=== PATIENT | male | born 1985 | race Caucasian/White ===

== ENCOUNTER 2016-04-20 23:16 | Emergency (ER) | payer MEDICAID ==
[2010-12-01 07:11] VITALS: BMI 31.8
== END 2016-04-21 00:33 | disposition home or self-care (01) ==
LOC: D.ER 23:16
DX: M54.6 Pain in thoracic spine (principal); M25.512 Pain in left shoulder; F17.200 Nicotine dependence, unspecified, uncomplicated

== ENCOUNTER 2017-04-20 19:20 | Emergency (ER) | payer MEDICARE, MEDICAID ==
[2010-12-01 07:11] VITALS: BMI 31.8
[2017-04-20 21:20] LABS: BASOPHILS 0.1 % (0-2); EOSINOPHILS 1.5 % (0-7); HEMATOCRIT 43.9 % (42.0-54.0); HEMOGLOBIN 15.1 g/dL (13.5-17.5); IMMATURE GRANULOCYTES 0.2 % (0-5); LYMPHOCYTES 19.5 % (15-50); MCH 30.8 pg (26.0-34.0); MCHC 34.4 g/dL (31.0-37.0); MCV 89.4 fL (80.0-100.0); MEAN PLATELET VOLUME 10.9 fL (7.4-10.4); NEUTROPHILS 70.7 % (40-80); PLATELET COUNT 281 10x3/uL (130-400); RBC 4.91 10x6/uL (4.20-6.10); RDW 12.6 % (11.5-14.5); WBC 10.5 10x3/uL (4.8-10.8)
[2017-04-20 21:27] LABS: ALBUMIN 4.7 g/dL (3.4-5.0); ALKALINE PHOSPHATASE 87 U/L (46-116); ALT (SGPT) 63 U/L (10-68); BILIRUBIN - TOTAL 0.17 mg/dL (0.2-1.3); CALC OSMOLALITY 279 mosm/kg (275-300); CALCIUM 10.3 mg/dL (8.5-10.1); CARBON DIOXIDE 27.4 mmol/L (21.0-32.0); CHLORIDE - SERUM 103 mmol/L (98-107); CREATININE - SERUM 0.8 mg/dL (0.6-1.3); GLUCOSE 90 mg/dL (74-106); POTASSIUM - SERUM 3.9 mmol/L (3.5-5.1); PROTEIN - SERUM 7.8 g/dL (6.4-8.2); SODIUM 140 mmol/L (136-145); UREA NITROGEN 14 mg/dL (7-18); eGFR NON AFRICAN AMERICAN > 90 mL/min (90-120)
[2017-04-20 21:54] LABS: UDS - AMPHET NEGATIVE QUAL (NEGATIVE); UDS - BARB NEGATIVE QUAL (NEGATIVE); UDS - BENZO NEGATIVE QUAL (NEGATIVE); UDS - COCAINE NEGATIVE QUAL (NEGATIVE); UDS - OPIATE NEGATIVE QUAL (NEGATIVE); UDS - PCP NEGATIVE QUAL (NEGATIVE); UDS - THC NEGATIVE QUAL (NEGATIVE)
[2017-04-20 21:57] LABS: APPEARANCE CLEAR (CLEAR); BILIRUBIN NEGATIVE (NEGATIVE); COLOR YELLOW (YELLOW); GLUCOSE NEGATIVE (NEGATIVE); KETONE NEGATIVE (NEGATIVE); NITRITE NEGATIVE (NEGATIVE); PROTEIN NEGATIVE (NEGATIVE); UROBILINOGEN NORMAL (NORMAL)
== END 2017-04-21 01:00 | disposition home or self-care (01) ==
LOC: D.ER 19:20
PROVIDERS: Physician Assistant Medical
DX: M94.0 Chondrocostal junction syndrome [Tietze] (principal); F17.200 Nicotine dependence, unspecified, uncomplicated

== ENCOUNTER 2017-05-25 22:19 | Emergency (ER) | payer MEDICARE, MEDICAID ==
[2010-12-01 07:11] VITALS: BMI 31.8
== END 2017-05-26 01:05 | disposition home or self-care (01) ==
LOC: D.ER 22:19
DX: S43.401A Unspecified sprain of right shoulder joint, initial encounter (principal); X58.XXXA Exposure to other specified factors, initial encounter; Y93.89 Activity, other specified; Y92.89 Other specified places as the place of occurrence of the external cause; F17.200 Nicotine dependence, unspecified, uncomplicated

== ENCOUNTER 2017-06-11 22:51 | Emergency (ER) | payer BC ==
[2010-12-01 07:11] VITALS: BMI 31.8
== END 2017-06-12 01:55 | disposition home or self-care (01) ==
LOC: D.ER 22:51
DX: S43.402A Unspecified sprain of left shoulder joint, initial encounter (principal); X50.0XXA Overexertion from strenuous movement or load, initial encounter; Y93.89 Activity, other specified; Y92.89 Other specified places as the place of occurrence of the external cause; M25.512 Pain in left shoulder; F17.200 Nicotine dependence, unspecified, uncomplicated

== ENCOUNTER 2017-07-13 17:24 | Emergency (ER) | payer MEDICAID ==
[2010-12-01 07:11] VITALS: BMI 31.8
== END 2017-07-13 20:20 | disposition home or self-care (01) ==
LOC: D.ER 17:24
DX: M75.92 Shoulder lesion, unspecified, left shoulder (principal); M75.91 Shoulder lesion, unspecified, right shoulder; M25.512 Pain in left shoulder; M25.511 Pain in right shoulder; F17.200 Nicotine dependence, unspecified, uncomplicated

== ENCOUNTER 2017-07-27 02:58 | Emergency (ER) | payer MEDICAID ==
[2010-12-01 07:11] VITALS: BMI 31.8
[2017-07-27 03:34] LABS: BASOPHILS 0.2 % (0-2); EOSINOPHILS 3.6 % (0-7); HEMATOCRIT 40.9 % (42.0-54.0); HEMOGLOBIN 14.4 g/dL (13.5-17.5); IMMATURE GRANULOCYTES 0.2 % (0-5); LYMPHOCYTES 34.8 % (15-50); MCH 30.8 pg (26.0-34.0); MCHC 35.2 g/dL (31.0-37.0); MCV 87.4 fL (80.0-100.0); MEAN PLATELET VOLUME 10.1 fL (7.4-10.4); NEUTROPHILS 50.2 % (40-80); RBC 4.68 10x6/uL (4.20-6.10); RDW 12.6 % (11.5-14.5); WBC 8.3 10x3/uL (4.8-10.8)
[2017-07-27 03:36] LABS: PLATELET COUNT 218 10x3/uL (130-400)
[2017-07-27 03:57] LABS: ALKALINE PHOSPHATASE 57 U/L (46-116); ALT (SGPT) 43 U/L (10-68); BILIRUBIN - TOTAL 0.21 mg/dL (0.2-1.3); CALC OSMOLALITY 281 mosm/kg (275-300); CALCIUM 9.1 mg/dL (8.5-10.1); CARBON DIOXIDE 23.7 mmol/L (21.0-32.0); CHLORIDE - SERUM 105 mmol/L (98-107); CREATININE - SERUM 0.8 mg/dL (0.6-1.3); GLUCOSE 88 mg/dL (74-106); POTASSIUM - SERUM 3.9 mmol/L (3.5-5.1); PROTEIN - SERUM 7.5 g/dL (6.4-8.2); SODIUM 140 mmol/L (136-145); UREA NITROGEN 24 mg/dL (7-18); eGFR NON AFRICAN AMERICAN > 90 mL/min (90-120)
[2017-07-27 04:01] LABS: CREATINE KINASE 150 UL (21-232); MAGNESIUM - SERUM 1.9 mg/dL (1.8-2.4)
[2017-07-27 04:02] LABS: TROPONIN-I < 0.017 ng/mL (0.000-0.060)
== END 2017-07-27 04:26 | disposition home or self-care (01) ==
LOC: D.ER 02:58
PROVIDERS: Emergency Medicine
DX: R00.2 Palpitations (principal); F17.200 Nicotine dependence, unspecified, uncomplicated

== ENCOUNTER 2017-08-18 11:33 | Emergency (ER) | payer MEDICAID ==
[~2017-08-18] VITALS: Ht 193 cm; Wt 116.4 kg
[2017-08-18 11:39] VITALS: Ht 193 cm; Wt 116.4 kg
[2017-08-18] MEDS ORDERED: SKELAXIN800 MG PO (11:42)
[2017-08-18] MEDS ORDERED: NEURONTIN800 MG PO (11:42)
[2017-08-18] MEDS ORDERED: TENORMIN25 MG (11:42)
[2017-08-18] MEDS ORDERED: CYMBALTA60 MG PO (11:43)
[2017-08-18] MEDS ORDERED: IBUPROFEN200 MG PO (11:43)
[2017-08-18] MEDS ORDERED: HYDROCODON-ACE1 EAC7 PO (13:53)
[2017-08-18] MEDS ORDERED: CYCLOBENZAPRINE10 MG PO (13:53)
[2017-08-18 13:58] VITALS: BP 132/069
== END 2017-08-18 13:58 | disposition home or self-care (01) ==
LOC: D.ER 11:33
DX: M54.5 Low back pain (principal); M25.552 Pain in left hip; Q79.6 Ehlers-Danlos syndromes; F17.200 Nicotine dependence, unspecified, uncomplicated

== ENCOUNTER 2017-11-14 21:13 | Emergency (ER) | payer MEDICAID ==
[~2017-11-14] VITALS: Ht 193 cm; Wt 115.7 kg
[~2017-11-14 21:13] MED LIST: CYCLOBENZAPRINE10 MG PO; CYMBALTA60 MG PO; HYDROCODON-ACE1 EAC7 PO; IBUPROFEN200 MG PO; NEURONTIN800 MG PO; SKELAXIN800 MG PO; TENORMIN25 MG
[2017-11-14 21:21] VITALS: Ht 193 cm; Wt 115.7 kg
[2017-11-14 22:19] LABS: BASOPHILS 0.1 % (0-2); EOSINOPHILS 1.6 % (0-7); HEMATOCRIT 41.3 % (42.0-54.0); HEMOGLOBIN 14.6 g/dL (13.5-17.5); IMMATURE GRANULOCYTES 0.3 % (0-5); LYMPHOCYTES 27.8 % (15-50); MCH 30.2 pg (26.0-34.0); MCHC 35.4 g/dL (31.0-37.0); MCV 85.3 fL (80.0-100.0); MEAN PLATELET VOLUME 10.7 fL (7.4-10.4); MONOCYTES 6.8 % (2-11); NEUTROPHILS 63.4 % (40-80); PLATELET COUNT 195 10x3/uL (130-400); RBC 4.84 10x6/uL (4.20-6.10); RDW 12.4 % (11.5-14.5)
[2017-11-14 22:24] LABS: APTT 31.5 SECONDS (22.8-39.4); INR 1.01 (0.85-1.17); PROTIME 12.9 SECONDS (11.6-15.0)
[2017-11-14 22:25] LABS: D-DIMER-QUANTITATIVE < 0.27 ug/mLFEU (0.20-0.54)
[2017-11-14 22:30] LABS: ALKALINE PHOSPHATASE 61 U/L (46-116); ALT (SGPT) 78 U/L (10-68); BILIRUBIN - TOTAL 0.26 mg/dL (0.2-1.3); CALC OSMOLALITY 281 mosm/kg (275-300); CALCIUM 8.9 mg/dL (8.5-10.1); CARBON DIOXIDE 24.3 mmol/L (21.0-32.0); CHLORIDE - SERUM 105 mmol/L (98-107); CREATININE - SERUM 0.9 mg/dL (0.6-1.3); GLUCOSE 96 mg/dL (74-106); POTASSIUM - SERUM 3.7 mmol/L (3.5-5.1); PROTEIN - SERUM 7.4 g/dL (6.4-8.2); SODIUM 141 mmol/L (136-145); UREA NITROGEN 14 mg/dL (7-18); eGFR NON AFRICAN AMERICAN > 90 mL/min (90-120)
[2017-11-14 22:41] LABS: CKMB 1.1 U/L (0.0-3.6); CREATINE KINASE 125 UL (21-232); PRO BNP 124 pg/mL (0-125)
[2017-11-14 22:46] LABS: TROPONIN-I < 0.017 ng/mL (0.000-0.060)
[2017-11-15] MEDS ORDERED: NAPROSYN500 MG PO (00:23)
[2017-11-15 00:35] VITALS: BP 120/72
== END 2017-11-15 00:35 | disposition home or self-care (01) ==
LOC: D.ER 21:13
PROVIDERS: Family Medicine
DX: R07.9 Chest pain, unspecified (principal); M94.0 Chondrocostal junction syndrome [Tietze]; R00.2 Palpitations; R55 Syncope and collapse; Q79.6 Ehlers-Danlos syndromes; F17.200 Nicotine dependence, unspecified, uncomplicated

== ENCOUNTER 2017-12-24 11:43 | Emergency (ER) | payer SELFPAY ==
[~2017-12-24] VITALS: Ht 193 cm; Wt 113.6 kg
[~2017-12-24 11:43] MED LIST changes: +NAPROSYN500 MG PO
[2017-12-24 12:00] VITALS: Ht 193 cm; Wt 113.6 kg
[2017-12-24 12:30] LABS: BASOPHILS 0.2 % (0-2); EOSINOPHILS 1.6 % (0-7); HEMATOCRIT 41.7 % (42.0-54.0); HEMOGLOBIN 14.5 g/dL (13.5-17.5); IMMATURE GRANULOCYTES 0.2 % (0-5); LYMPHOCYTES 22.2 % (15-50); MCH 30.3 pg (26.0-34.0); MCHC 34.8 g/dL (31.0-37.0); MCV 87.1 fL (80.0-100.0); MEAN PLATELET VOLUME 10.4 fL (7.4-10.4); MONOCYTES 7.6 % (2-11); NEUTROPHILS 68.2 % (40-80); PLATELET COUNT 213 10x3/uL (130-400); RBC 4.79 10x6/uL (4.20-6.10); RDW 12.9 % (11.5-14.5)
[2017-12-24 12:47] LABS: ALBUMIN 4.3 g/dL (3.4-5.0); ALKALINE PHOSPHATASE 66 U/L (46-116); ALT (SGPT) 79 U/L (10-68); AMYLASE - SERUM 28 U/L (25-115); BILIRUBIN - TOTAL 0.19 mg/dL (0.2-1.3); CALC OSMOLALITY 286 mosm/kg (275-300); CALCIUM 9.7 mg/dL (8.5-10.1); CARBON DIOXIDE 28.1 mmol/L (21.0-32.0); CHLORIDE - SERUM 103 mmol/L (98-107); CREATININE - SERUM 1.1 mg/dL (0.6-1.3); GLUCOSE 104 mg/dL (74-106); LIPASE 94 U/L (73-393); POTASSIUM - SERUM 3.6 mmol/L (3.5-5.1); PROTEIN - SERUM 7.8 g/dL (6.4-8.2); SODIUM 143 mmol/L (136-145); UREA NITROGEN 19 mg/dL (7-18); eGFR NON AFRICAN AMERICAN 83 mL/min (90-120)
[2017-12-24 13:13] LABS: APPEARANCE CLEAR (CLEAR); BILIRUBIN NEGATIVE (NEGATIVE); COLOR YELLOW (YELLOW); GLUCOSE NEGATIVE (NEGATIVE); KETONE NEGATIVE (NEGATIVE); NITRITE NEGATIVE (NEGATIVE); PROTEIN NEGATIVE (NEGATIVE); SPECIFIC GRAVITY 1.025 (1.005-1.020); UROBILINOGEN NORMAL (NORMAL)
[2017-12-24] MEDS ORDERED: OMEPRAZOLE20 M1 PO (14:51)
[2017-12-24] MEDS ORDERED: COMPAZINE5 MG PO (14:51)
[2017-12-24 14:57] VITALS: BP 132/89
== END 2017-12-24 14:59 | disposition home or self-care (01) ==
LOC: D.ER 11:43
PROVIDERS: Family Medicine
DX: K29.70 Gastritis, unspecified, without bleeding (principal); R11.2 Nausea with vomiting, unspecified; R11.10 Vomiting, unspecified; Q79.6 Ehlers-Danlos syndromes

== ENCOUNTER 2018-02-11 15:02 | Emergency (ER) | payer OTHER, BC ==
[~2018-02-11] VITALS: Ht 193 cm; Wt 113.6 kg
[~2018-02-11 15:02] MED LIST changes: +COMPAZINE5 MG PO; +OMEPRAZOLE20 M1 PO
[2018-02-11 15:05] VITALS: BP 138/89; Ht 193 cm; Wt 113.6 kg
[2018-02-11 15:59] LABS: BASOPHILS 0.4 % (0-2); EOSINOPHILS 4.4 % (0-7); HEMATOCRIT 41.1 % (42.0-54.0); HEMOGLOBIN 14.3 g/dL (13.5-17.5); IMMATURE GRANULOCYTES 0.2 % (0-5); MCH 29.8 pg (26.0-34.0); MCHC 34.8 g/dL (31.0-37.0); MCV 85.6 fL (80.0-100.0); MEAN PLATELET VOLUME 10.4 fL (7.4-10.4); MONOCYTES 8.5 % (2-11); NEUTROPHILS 49.5 % (40-80); PLATELET COUNT 228 10x3/uL (130-400); RDW 12.6 % (11.5-14.5); WBC 5.7 10x3/uL (4.8-10.8)
[2018-02-11 16:16] LABS: ALKALINE PHOSPHATASE 74 U/L (46-116); ALT (SGPT) 112 U/L (10-68); AMYLASE - SERUM 30 U/L (25-115); BILIRUBIN - TOTAL 0.47 mg/dL (0.2-1.3); CALC OSMOLALITY 274 mosm/kg (275-300); CALCIUM 9.2 mg/dL (8.5-10.1); CARBON DIOXIDE 26.3 mmol/L (21.0-32.0); CHLORIDE - SERUM 100 mmol/L (98-107); CREATININE - SERUM 0.7 mg/dL (0.6-1.3); GLUCOSE 111 mg/dL (74-106); LIPASE 96 U/L (73-393); POTASSIUM - SERUM 3.8 mmol/L (3.5-5.1); PROTEIN - SERUM 7.8 g/dL (6.4-8.2); SODIUM 137 mmol/L (136-145); UREA NITROGEN 12 mg/dL (7-18); eGFR NON AFRICAN AMERICAN > 90 mL/min (90-120)
[2018-02-11 17:03] LABS: APPEARANCE CLEAR (CLEAR); BILIRUBIN NEGATIVE (NEGATIVE); COLOR YELLOW (YELLOW); GLUCOSE NEGATIVE (NEGATIVE); KETONE NEGATIVE (NEGATIVE); NITRITE NEGATIVE (NEGATIVE); PROTEIN NEGATIVE (NEGATIVE); SPECIFIC GRAVITY 1.015 (1.005-1.020); UROBILINOGEN NORMAL (NORMAL)
[2018-02-11] MEDS ORDERED: PHENERGAN25 MG RC (17:54)
== END 2018-02-11 18:20 | disposition home or self-care (01) ==
LOC: D.ER 15:02
PROVIDERS: Emergency Medicine
DX: R11.2 Nausea with vomiting, unspecified (principal); M54.2 Cervicalgia; Q79.6 Ehlers-Danlos syndromes; F17.200 Nicotine dependence, unspecified, uncomplicated

== ENCOUNTER 2018-03-06 16:58 | Emergency (ER) | payer OTHER, BC ==
[~2018-03-06] VITALS: Ht 193 cm; Wt 113.7 kg
[~2018-03-06 16:58] MED LIST changes: +PHENERGAN25 MG RC
[2018-03-06 17:00] VITALS: Ht 193 cm; Wt 113.7 kg
[2018-03-06 18:08] LABS: BASOPHILS 0.3 % (0-2); HEMATOCRIT 40.9 % (42.0-54.0); HEMOGLOBIN 14.3 g/dL (13.5-17.5); IMMATURE GRANULOCYTES 0.3 % (0-5); LYMPHOCYTES 40.1 % (15-50); MCH 29.7 pg (26.0-34.0); MEAN PLATELET VOLUME 10.4 fL (7.4-10.4); MONOCYTES 6.8 % (2-11); NEUTROPHILS 50.5 % (40-80); PLATELET COUNT 225 10x3/uL (130-400); RBC 4.81 10x6/uL (4.20-6.10); RDW 12.5 % (11.5-14.5); WBC 7.7 10x3/uL (4.8-10.8)
[2018-03-06 18:34] LABS: ALBUMIN 4.5 g/dL (3.4-5.0); ALKALINE PHOSPHATASE 70 U/L (46-116); ALT (SGPT) 83 U/L (10-68); BILIRUBIN - TOTAL 0.23 mg/dL (0.2-1.3); C-REACTIVE PROTEIN 0.3 mg/dL (0.0-0.9); CALC OSMOLALITY 283 mosm/kg (275-300); CALCIUM 9.5 mg/dL (8.5-10.1); CHLORIDE - SERUM 105 mmol/L (98-107); CREATININE - SERUM 0.8 mg/dL (0.6-1.3); GLUCOSE 92 mg/dL (74-106); POTASSIUM - SERUM 3.9 mmol/L (3.5-5.1); PROTEIN - SERUM 7.7 g/dL (6.4-8.2); SODIUM 142 mmol/L (136-145); UREA NITROGEN 15 mg/dL (7-18); eGFR NON AFRICAN AMERICAN > 90 mL/min (90-120)
[2018-03-06] MEDS ORDERED: NEURONTIN600 MG PO (19:00)
[2018-03-06] MEDS ORDERED: TORADOL10 MG PO (19:00)
[2018-03-06 20:14] VITALS: BP 134/84
== END 2018-03-06 19:43 | disposition home or self-care (01) ==
LOC: D.ER 16:58
PROVIDERS: Family Medicine
DX: R20.2 Paresthesia of skin (principal); Q79.6 Ehlers-Danlos syndromes

== ENCOUNTER 2018-03-20 17:23 | Emergency (ER) | payer OTHER, BC ==
[~2018-03-20] VITALS: Ht 193 cm; Wt 118.2 kg
[~2018-03-20 17:23] MED LIST changes: +NEURONTIN600 MG PO; +TORADOL10 MG PO
[2018-03-20 17:41] VITALS: BP 135/85; Ht 193 cm; Wt 118.2 kg
[2018-03-20 18:06] LABS: BASOPHILS 0.2 % (0-2); EOSINOPHILS 2.9 % (0-7); HEMATOCRIT 39.4 % (42.0-54.0); HEMOGLOBIN 13.8 g/dL (13.5-17.5); IMMATURE GRANULOCYTES 0.2 % (0-5); LYMPHOCYTES 37.8 % (15-50); MCH 30.1 pg (26.0-34.0); MEAN PLATELET VOLUME 10.1 fL (7.4-10.4); MONOCYTES 7.8 % (2-11); NEUTROPHILS 51.1 % (40-80); PLATELET COUNT 235 10x3/uL (130-400); RBC 4.58 10x6/uL (4.20-6.10); RDW 12.8 % (11.5-14.5); WBC 8.4 10x3/uL (4.8-10.8)
[2018-03-20 18:24] LABS: ALBUMIN 4.3 g/dL (3.4-5.0); ALKALINE PHOSPHATASE 74 U/L (46-116); ALT (SGPT) 55 U/L (10-68); BILIRUBIN - TOTAL 0.21 mg/dL (0.2-1.3); CALC OSMOLALITY 280 mosm/kg (275-300); CALCIUM 9.2 mg/dL (8.5-10.1); CARBON DIOXIDE 23.5 mmol/L (21.0-32.0); CHLORIDE - SERUM 104 mmol/L (98-107); CREATININE - SERUM 0.9 mg/dL (0.6-1.3); GLUCOSE 91 mg/dL (74-106); POTASSIUM - SERUM 3.7 mmol/L (3.5-5.1); PROTEIN - SERUM 7.5 g/dL (6.4-8.2); SODIUM 139 mmol/L (136-145); UREA NITROGEN 21 mg/dL (7-18); eGFR NON AFRICAN AMERICAN > 90 mL/min (90-120)
[2018-03-20 19:28] LABS: APPEARANCE CLEAR (CLEAR); BILIRUBIN NEGATIVE (NEGATIVE); COLOR STRAW (YELLOW); GLUCOSE NEGATIVE (NEGATIVE); KETONE NEGATIVE (NEGATIVE); NITRITE NEGATIVE (NEGATIVE); PROTEIN NEGATIVE (NEGATIVE); UROBILINOGEN NORMAL (NORMAL)
[2018-03-20 19:45] LABS: CREATINE KINASE 324 UL (21-232)
[2018-03-20 19:49] LABS: CKMB 2.8 U/L (0.0-3.6)
[2018-03-20] MEDS ORDERED: NAPROSYN500 MG PO (19:54)
== END 2018-03-20 20:12 | disposition home or self-care (01) ==
LOC: D.ER 17:23
PROVIDERS: Emergency Medicine; Family Medicine
DX: M62.830 Muscle spasm of back (principal); M51.36 Other intervertebral disc degeneration, lumbar region; F17.200 Nicotine dependence, unspecified, uncomplicated

== ENCOUNTER 2018-06-15 04:45 | Emergency (ER) | payer SELFPAY ==
[~2018-06-15] VITALS: Ht 193 cm; Wt 118.2 kg
[2018-06-15 04:52] VITALS: Ht 193 cm; Wt 118.2 kg
[2018-06-15] MEDS ORDERED: AUGMENTIN 875-11 TAB PO (05:49)
[2018-06-15] MEDS ORDERED: FLUTICASONE PRO16 GM NASAL (05:49)
[2018-06-15 06:15] VITALS: BP 118/79
== END 2018-06-15 06:16 | disposition home or self-care (01) ==
LOC: D.ER 04:45
DX: J01.90 Acute sinusitis, unspecified (principal); R09.89 Other specified symptoms and signs involving the circulatory and respiratory systems; Q79.6 Ehlers-Danlos syndromes; F17.200 Nicotine dependence, unspecified, uncomplicated

== ENCOUNTER 2018-07-15 00:16 | Emergency (ER) | payer MEDICAID ==
[~2018-07-15] VITALS: Ht 193 cm; Wt 115.9 kg
[~2018-07-15 00:16] MED LIST changes: +AUGMENTIN 875-11 TAB PO; +FLUTICASONE PRO16 GM NASAL
[2018-07-15 00:28] VITALS: Ht 193 cm; Wt 115.9 kg
[2018-07-15 01:20] LABS: BASOPHILS 0.3 % (0-2); EOSINOPHILS 2.7 % (0-7); HEMATOCRIT 41.8 % (42.0-54.0); HEMOGLOBIN 14.7 g/dL (13.5-17.5); IMMATURE GRANULOCYTES 0.3 % (0-5); LYMPHOCYTES 27.5 % (15-50); MCH 30.3 pg (26.0-34.0); MCHC 35.2 g/dL (31.0-37.0); MCV 86.2 fL (80.0-100.0); MEAN PLATELET VOLUME 10.5 fL (7.4-10.4); MONOCYTES 8.3 % (2-11); NEUTROPHILS 60.9 % (40-80); PLATELET COUNT 213 10x3/uL (130-400); RBC 4.85 10x6/uL (4.20-6.10); RDW 12.6 % (11.5-14.5); WBC 7.4 10x3/uL (4.8-10.8)
[2018-07-15 01:24] LABS: APTT 31.1 SECONDS (22.8-39.4); INR 1.04 (0.85-1.17); PROTIME 13.1 SECONDS (11.6-15.0)
[2018-07-15 01:35] LABS: ALBUMIN 4.2 g/dL (3.4-5.0); ALKALINE PHOSPHATASE 73 U/L (46-116); ALT (SGPT) 91 U/L (10-68); CALC OSMOLALITY 279 mosm/kg (275-300); CALCIUM 9.6 mg/dL (8.5-10.1); CARBON DIOXIDE 27.6 mmol/L (21.0-32.0); CHLORIDE - SERUM 104 mmol/L (98-107); CREATININE - SERUM 0.8 mg/dL (0.6-1.3); GLUCOSE 114 mg/dL (74-106); POTASSIUM - SERUM 4.1 mmol/L (3.5-5.1); PROTEIN - SERUM 7.5 g/dL (6.4-8.2); SODIUM 139 mmol/L (136-145); UREA NITROGEN 15 mg/dL (7-18); eGFR NON AFRICAN AMERICAN > 90 mL/min (90-120)
[2018-07-15 01:41] LABS: CKMB 0.9 U/L (0.0-3.6); CREATINE KINASE 162 UL (21-232); TROPONIN-I < 0.017 ng/mL (0.000-0.060)
[2018-07-15] MEDS ORDERED: HYDROCODON-ACE1 EAC2 PO (03:56)
[2018-07-15] MEDS ORDERED: STERAPRED DS 1210 MG PO (03:56)
[2018-07-15 04:12] VITALS: BP 122/83
== END 2018-07-15 04:12 | disposition home or self-care (01) ==
LOC: D.ER 00:16
PROVIDERS: Emergency Medicine
DX: R07.9 Chest pain, unspecified (principal); R11.0 Nausea

== ENCOUNTER 2018-07-17 21:19 | Emergency (ER) | payer MEDICAID ==
[~2018-07-17 21:19] MED LIST changes: +HYDROCODON-ACE1 EAC2 PO; +STERAPRED DS 1210 MG PO
[2018-07-17 21:20] VITALS: BMI 31.1
[2018-07-17 21:58] LABS: BASOPHILS 0.1 % (0-2); EOSINOPHILS 0.3 % (0-7); HEMATOCRIT 41.8 % (42.0-54.0); HEMOGLOBIN 14.6 g/dL (13.5-17.5); IMMATURE GRANULOCYTES 0.3 % (0-5); LYMPHOCYTES 23.3 % (15-50); MCH 30.1 pg (26.0-34.0); MCHC 34.9 g/dL (31.0-37.0); MCV 86.2 fL (80.0-100.0); MEAN PLATELET VOLUME 10.6 fL (7.4-10.4); MONOCYTES 3.7 % (2-11); NEUTROPHILS 72.3 % (40-80); PLATELET COUNT 219 10x3/uL (130-400); RBC 4.85 10x6/uL (4.20-6.10); RDW 12.9 % (11.5-14.5); WBC 6.8 10x3/uL (4.8-10.8)
[2018-07-17 22:06] LABS: APTT 28.6 SECONDS (22.8-39.4); INR 1.04 (0.85-1.17); PROTIME 13.1 SECONDS (11.6-15.0)
[2018-07-17 22:12] LABS: ALBUMIN 4.4 g/dL (3.4-5.0); ALKALINE PHOSPHATASE 70 U/L (46-116); ALT (SGPT) 80 U/L (10-68); BILIRUBIN - TOTAL 0.27 mg/dL (0.2-1.3); CALC OSMOLALITY 279 mosm/kg (275-300); CALCIUM 9.4 mg/dL (8.5-10.1); CARBON DIOXIDE 26.6 mmol/L (21.0-32.0); CHLORIDE - SERUM 105 mmol/L (98-107); CREATININE - SERUM 0.8 mg/dL (0.6-1.3); GLUCOSE 109 mg/dL (74-106); POTASSIUM - SERUM 4.5 mmol/L (3.5-5.1); PROTEIN - SERUM 7.5 g/dL (6.4-8.2); SODIUM 140 mmol/L (136-145); UREA NITROGEN 13 mg/dL (7-18); eGFR NON AFRICAN AMERICAN > 90 mL/min (90-120)
[2018-07-17 22:23] LABS: CKMB 0.8 U/L (0.0-3.6); CREATINE KINASE 100 UL (21-232); MAGNESIUM - SERUM 1.9 mg/dL (1.8-2.4)
[2018-07-17 22:24] LABS: TROPONIN-I < 0.017 ng/mL (0.000-0.060)
[2018-07-17] MEDS ORDERED: TORADOL10 MG PO (22:53)
[2018-07-17 23:50] VITALS: BP 134/84
== END 2018-07-17 23:50 | disposition home or self-care (01) ==
LOC: D.ER 21:19
PROVIDERS: Family Medicine
DX: R07.89 Other chest pain (principal)

== ENCOUNTER → 2018-09-15 10:29 | Outpatient (CLI) | payer MEDICAID ==
--- NOTE | 2018-09-19 18:38 | ST ---
PATIENT:EVIN ADAMES MEDICAL RECORD: [id number] SEX: M LOCATION:[facility] ORDER #: ADMISSION DATE: 09/15/18 AGE OF PATIENT: 33 REFERRING PHYSICIAN: INTERPRETING PHYSICIAN: LEYDI PARKER MD DATE OF SERVICE: 09/15/2018 PROCEDURE: Nuclear Stress Test INDICATION: Chest pain. Kaiden-Danlos syndrome. He was exercised on standard Lexiscan protocol with 33 mCi of sestamibi injected at peak stress, 11 mCi used previously for rest images. FINDINGS: Gated SPECT reveals preserved ejection fraction at 66% with good wall motion and thickening and brightening throughout all segments. SPECT imaging Cardiolite was used as myocardial fusion agent. There is homogeneous uptake throughout all segments at rest and stress with no evidence of inducible ischemia or previous infarction. OVERALL IMPRESSION: 1. This is a normal nuclear stress test with no evidence of inducible ischemia or previous infarction. 2. Gated SPECT reveals a preserved ejection fraction at 66%. In this patient with ongoing symptomatology, the current scan does not suggest the presence of hemodynamically significant coronary artery disease. Evaluate noncardiac etiology of chest pain. TRANSINT:[id number] Voice Confirmation ID: [id number] DOCUMENT ID: [id number] LEYDI PARKER MD at 1838 CC: [id number] DICTATION DATE: 09/15/18 1559 DIRECTOR OF CODING: 09/16/18 0013 DEP CLI 09/15/18 [id number] [place] [address]
== END | disposition home or self-care (01) ==
LOC: D.HCCARDIO 10:29
PROVIDERS: ATTEND Internal Medicine Interventional Cardiology
DX: R07.9 Chest pain, unspecified (principal)

== ENCOUNTER 2018-12-11 21:51 | Emergency (ER) | payer OTHER ==
[~2018-12-11] VITALS: Ht 193 cm; Wt 109.1 kg
[2018-12-11 21:59] VITALS: Ht 193 cm; Wt 109.1 kg
[2018-12-11] MEDS ORDERED: DICLOFENAC SODI50 MG PO (23:27)
[2018-12-11 23:58] VITALS: BP 118/71
== END 2018-12-11 23:58 | disposition home or self-care (01) ==
LOC: D.ER 21:51
DX: S29.012A Strain of muscle and tendon of back wall of thorax, initial encounter (principal); F17.210 Nicotine dependence, cigarettes, uncomplicated

== ENCOUNTER 2019-03-11 21:30 | Emergency (ER) | payer OTHER ==
[~2019-03-11] VITALS: Ht 193 cm; Wt 120.5 kg
[~2019-03-11 21:30] MED LIST changes: +DICLOFENAC SODI50 MG PO
[2019-03-11 22:02] VITALS: Ht 193 cm; Wt 120.5 kg
[2019-03-11] MEDS ORDERED: SKELAXIN800 MG PO (22:04)
[2019-03-11 22:27] LABS: BASOPHILS 0.2 % (0-2); HEMATOCRIT 44.6 % (42.0-54.0); HEMOGLOBIN 15.5 g/dL (13.5-17.5); IMMATURE GRANULOCYTES 0.2 % (0-5); LYMPHOCYTES 27.6 % (15-50); MCH 30.5 pg (26.0-34.0); MCHC 34.8 g/dL (31.0-37.0); MCV 87.6 fL (80.0-100.0); MEAN PLATELET VOLUME 10.3 fL (7.4-10.4); MONOCYTES 6.9 % (2-11); NEUTROPHILS 63.1 % (40-80); PLATELET COUNT 240 10x3/uL (130-400); RBC 5.09 10x6/uL (4.20-6.10); RDW 12.2 % (11.5-14.5); WBC 12.6 10x3/uL (4.8-10.8)
[2019-03-11 22:38] LABS: CALC OSMOLALITY 280 mosm/kg (275-300); CALCIUM 9.2 mg/dL (8.5-10.1); CARBON DIOXIDE 23.5 mmol/L (21.0-32.0); CHLORIDE - SERUM 103 mmol/L (98-107); CREATININE - SERUM 0.9 mg/dL (0.6-1.3); GLUCOSE 95 mg/dL (74-106); SODIUM 140 mmol/L (136-145); UREA NITROGEN 17 mg/dL (7-18); eGFR NON AFRICAN AMERICAN > 90 mL/min (90-120)
[2019-03-11 22:40] LABS: APTT 32.8 SECONDS (22.8-39.4); INR 1.08 (0.85-1.17); PROTIME 13.5 SECONDS (11.6-15.0)
[2019-03-11 22:52] LABS: ALBUMIN 4.6 g/dL (3.4-5.0); ALKALINE PHOSPHATASE 90 U/L (46-116); ALT (SGPT) 68 U/L (10-68); BILIRUBIN - TOTAL 0.16 mg/dL (0.2-1.3); CKMB 1.9 U/L (0.0-3.6); CREATINE KINASE 229 UL (21-232); MAGNESIUM - SERUM 1.8 mg/dL (1.8-2.4); PROTEIN - SERUM 7.9 g/dL (6.4-8.2); TROPONIN-I < 0.017 ng/mL (0.000-0.060)
[2019-03-11 23:43] VITALS: BP 134/80
== END 2019-03-11 23:43 | disposition home or self-care (01) ==
LOC: D.ER 21:30
PROVIDERS: Family Medicine
DX: M25.512 Pain in left shoulder (principal); Q79.60 Ehlers-Danlos syndrome, unspecified

== ENCOUNTER 2019-04-05 19:36 | Emergency (ER) | payer OTHER ==
[~2019-04-05] VITALS: Ht 193 cm; Wt 120.5 kg
[2019-04-05 19:44] VITALS: Ht 193 cm; Wt 120.5 kg
[2019-04-05] MEDS ORDERED: ZOFRAN ODT4 MG/UDTAB PO (19:47)
[2019-04-05] MEDS ORDERED: CYCLOBENZAPRINE10 MG PO (19:47)
[2019-04-05] MEDS ORDERED: MEDROL DOSE PACK4 MG PO (21:13)
[2019-04-05 21:16] VITALS: BP 122/760
== END 2019-04-05 21:17 | disposition home or self-care (01) ==
LOC: D.ER 19:36
DX: M79.18 Myalgia, other site (principal); M54.5 Low back pain; W18.40XA Slipping, tripping and stumbling without falling, unspecified, initial encounter; Y93.9 Activity, unspecified; Y92.9 Unspecified place or not applicable; Q79.60 Ehlers-Danlos syndrome, unspecified

== ENCOUNTER 2020-05-23 07:05 | Emergency (ER) | payer OTHER ==
[~2020-05-23] VITALS: Ht 193 cm; Wt 111.4 kg
[~2020-05-23 07:05] MED LIST changes: +ACETAMINOPHEN500 M1 PO; +MEDROL DOSE PACK4 MG PO; +PROTONIX40 MG PO; +VOLTAREN75 MG PO; +ZOFRAN ODT4 MG/UDTAB PO
[2020-05-23 07:07] VITALS: BP 111/69; Ht 193 cm; Wt 111.4 kg
[2020-05-23 08:04] LABS: CALC OSMOLALITY 276 mosm/kg (275-300); CARBON DIOXIDE 27.3 mmol/L (21.0-32.0); CHLORIDE - SERUM 101 mmol/L (98-107); CREATININE - SERUM 0.9 mg/dL (0.6-1.3); GLUCOSE 113 mg/dL (74-106); POTASSIUM - SERUM 4.2 mmol/L (3.5-5.1); SODIUM 137 mmol/L (136-145); UREA NITROGEN 19 mg/dL (7-18); eGFR NON AFRICAN AMERICAN > 90 mL/min (90-120)
[2020-05-23 08:10] LABS: ALBUMIN 4.7 g/dL (3.4-5.0); ALKALINE PHOSPHATASE 75 U/L (30-120); ALT (SGPT) 111 U/L (10-68); BILIRUBIN - TOTAL 0.53 mg/dL (0.2-1.3); LIPASE 103 U/L (73-393); PROTEIN - SERUM 7.8 g/dL (6.4-8.2)
[2020-05-23 08:22] LABS: BASOPHILS 0.2 % (0-2); HEMATOCRIT 46.8 % (42.0-54.0); HEMOGLOBIN 16.4 g/dL (13.5-17.5); IMMATURE GRANULOCYTES 0.3 % (0-5); LYMPHOCYTE ABS# 2.63 10x3/uL (1.32-3.57); LYMPHOCYTES 15.3 % (15-50); MCH 30.3 pg (26.0-34.0); MCV 86.5 fL (80.0-100.0); MEAN PLATELET VOLUME 10.5 fL (7.4-10.4); MONOCYTES 8.7 % (2-11); NEUTROPHIL ABS# 12.76 10x3/uL (1.78-5.38); NEUTROPHILS 74.5 % (40-80); PLATELET COUNT 270 10x3/uL (130-400); RBC 5.41 10x6/uL (4.20-6.10); RDW 12.8 % (11.5-14.5); WBC 17.2 10x3/uL (4.8-10.8)
[2020-05-23] MEDS ORDERED: ZPAK PO (09:41)
== END 2020-05-23 10:00 | disposition home or self-care (01) ==
LOC: D.ER 07:05
PROVIDERS: Emergency Medicine
DX: R07.89 Other chest pain (principal); F41.9 Anxiety disorder, unspecified; G89.29 Other chronic pain; M94.0 Chondrocostal junction syndrome [Tietze]; D72.829 Elevated white blood cell count, unspecified

== ENCOUNTER 2020-08-27 18:40 | Emergency (ER) | payer OTHER ==
[~2020-08-27] VITALS: Ht 193 cm; Wt 120.0 kg
[~2020-08-27 18:40] MED LIST changes: +ZPAK PO
[2020-08-27 19:33] VITALS: BP 140/91; Ht 193 cm; Wt 120.0 kg
[2020-08-27 19:59] LABS: BASOPHILS 0.4 % (0-2); EOSINOPHILS 2.1 % (0-7); HEMATOCRIT 40.2 % (42.0-54.0); HEMOGLOBIN 13.7 g/dL (13.5-17.5); LYMPHOCYTES 40.7 % (15-50); MCH 29.5 pg (26.0-34.0); MCHC 34.2 g/dL (31.0-37.0); MCV 86.3 fL (80.0-100.0); MEAN PLATELET VOLUME 8.2 fL (7.4-10.4); MONOCYTES 4.8 % (2-11); PLATELET COUNT 230 10x3/uL (130-400); RBC 4.66 10x6/uL (4.20-6.10); RDW 13.7 % (11.5-14.5); WBC 8.1 10x3/uL (4.8-10.8)
[2020-08-27 20:17] LABS: CALC OSMOLALITY 281 mosm/kg (275-300); CALCIUM 8.9 mg/dL (8.5-10.1); CARBON DIOXIDE 27.4 mmol/L (21.0-32.0); CHLORIDE - SERUM 105 mmol/L (98-107); GLUCOSE 120 mg/dL (74-106); POTASSIUM - SERUM 3.6 mmol/L (3.5-5.1); SODIUM 140 mmol/L (136-145); UREA NITROGEN 17 mg/dL (7-18); eGFR NON AFRICAN AMERICAN > 90 mL/min (90-120)
[2020-08-27 20:26] LABS: ALBUMIN 4.1 g/dL (3.4-5.0); ALKALINE PHOSPHATASE 56 U/L (30-120); ALT (SGPT) 69 U/L (10-68); AMYLASE - SERUM 33 U/L (25-115); BILIRUBIN - TOTAL 0.22 mg/dL (0.2-1.3); LIPASE 81 U/L (73-393); PROTEIN - SERUM 7.3 g/dL (6.4-8.2); TROPONIN-I < 0.017 ng/mL (0.000-0.060)
== END 2020-08-27 21:58 | disposition left against medical advice (07) ==
LOC: D.ER 18:40
PROVIDERS: Family Medicine
DX: R10.9 Unspecified abdominal pain (principal); Z53.21 Procedure and treatment not carried out due to patient leaving prior to being seen by health care provider